=== PATIENT | female | born 1940 ===

== ENCOUNTER → 2016-11-26 | Outpatient (CLI) | payer OTHER ==
[2016-11-26 10:17] LABS: BASO % 1.1 %; BASO ABS # 0.08 K/uL (0-0.2); COMPLETE YES; EOS % 4.7 %; HEMATOCRIT 37.6 % (37-47); IG% 0.1 %; LYMPH % 34.5 %; LYMPH ABS # 2.41 K/uL (1.2-3.4); MEAN CELL VOLUME 97.9 fL (80-100); MEAN CORPUSCULAR HGB CONC 32.7 g/dl (32-36); MEAN PLATELET VOLUME 10.6 fL (7.4-10.4); MONO % 12.2 %; NEUT % 47.4 %; PLATELET COUNT 254 K/uL (130-400); RED BLOOD COUNT 3.84 M/uL (4.2-5.4); WHITE BLOOD COUNT 6.98 K/uL (4.8-10.8)
[2016-11-26 10:28] LABS: ALT/SGPT 22 U/L (12-78); AST/SGOT 12 U/L (15-37); BLOOD UREA NITROGEN 18 mg/dl (7-18); CARBON DIOXIDE 28 mmol/L (21-32); CHLORIDE 110 mmol/L (98-107); GLUCOSE 80 mg/dl (70-99); POTASSIUM 3.9 mmol/L (3.5-5.1); SODIUM 145 mmol/L (136-145)
[2016-11-26 10:35] LABS: CALCIUM 8.7 mg/dl (8.5-10.1)
[2016-11-26 10:38] LABS: ALB/GLOB RATIO 0.8 (0.9-2); ALKALINE PHOSPHATASE 61 U/L (45-117)
--- NOTE | 2016-12-04 12:55 | CODING QUERY MEDICAL NECESSITY ---
SUPPORTING DIAGNOSIS NEEDED Philippe ARELLANO, A supporting diagnosis is required for the test/procedure performed on this patient in order for us to be reimbursed by the patient's insurance. Please provide a supporting diagnosis for the following test/procedure listed below next to the test name along with your signature. *If there is no additional diagnosis for this patient that would support the following test/procedure please document that below next to the test/procedure. Test(s)/Procedure(s) that require a supporting diagnosis: * ([id number]) VITAMIN D ASSAY DIAGNOSIS: DATE OF SERVICE: 11/26/16 Provider Signature: Date: Thank you Russell [address] [facility] Information Management Once completed, please kindly fax back to [phone] For questions please call [phone]
== END ==
LOC: C.LABUPHEI 09:28
PROVIDERS: ATTEND Nurse Practitioner Family
DX: I15.9 Secondary hypertension, unspecified (principal); M62.81 Muscle weakness (generalized); E55.9 Vitamin D deficiency, unspecified

== ENCOUNTER → 2017-02-26 | Outpatient (CLI) | payer OTHER ==
[2017-02-26 10:05] LABS: BASO % 0.6 %; BASO ABS # 0.04 K/uL (0-0.2); COMPLETE YES; EOS % 4.1 %; HEMATOCRIT 36.4 % (37-47); IG% 0.1 %; LYMPH % 38.7 %; LYMPH ABS # 2.73 K/uL (1.2-3.4); MEAN CELL VOLUME 98.1 fL (80-100); MEAN CORPUSCULAR HEMOGLOBIN 31.8 pg (25-34); MEAN CORPUSCULAR HGB CONC 32.4 g/dl (32-36); MEAN PLATELET VOLUME 10.7 fL (7.4-10.4); MONO % 11.1 %; NEUT % 45.4 %; PLATELET COUNT 241 K/uL (130-400); RED BLOOD COUNT 3.71 M/uL (4.2-5.4); WHITE BLOOD COUNT 7.05 K/uL (4.8-10.8)
[2017-02-26 10:24] LABS: ALB/GLOB RATIO 0.9 (0.9-2); ALKALINE PHOSPHATASE 56 U/L (45-117); ALT/SGPT 26 U/L (12-78); AST/SGOT 12 U/L (15-37); BLOOD UREA NITROGEN 19 mg/dl (7-18); BUN/CREATININE RATIO 17.4 (10-20); CALCIUM 9.2 mg/dl (8.5-10.1); CARBON DIOXIDE 28 mmol/L (21-32); CHLORIDE 109 mmol/L (98-107); GLUCOSE 75 mg/dl (70-99); POTASSIUM 3.7 mmol/L (3.5-5.1); SODIUM 143 mmol/L (136-145)
[2017-02-26 10:58] LABS: ESTIMATED AVERAGE GLUCOSE 126 mg/dl; HA1C FLAG Normal (Normal)
== END ==
LOC: C.LABUPHEI 09:31
PROVIDERS: ATTEND Nurse Practitioner Family
DX: E55.9 Vitamin D deficiency, unspecified (principal); F44.5 Conversion disorder with seizures or convulsions; E11.9 Type 2 diabetes mellitus without complications; M62.81 Muscle weakness (generalized); I15.9 Secondary hypertension, unspecified

== ENCOUNTER → 2017-03-06 | Outpatient (CLI) | payer OTHER | LOC: C.LABUPHEI 10:32 | PROVIDERS: ATTEND Nurse Practitioner Family | DX: E55.9 Vitamin D deficiency, unspecified (principal) ==

== ENCOUNTER → 2017-04-19 | Outpatient (CLI) | payer OTHER | LOC: C.LABUPHEI 08:59 | PROVIDERS: ATTEND Nurse Practitioner Family | DX: F44.5 Conversion disorder with seizures or convulsions (principal) ==

== ENCOUNTER → 2017-07-15 | Outpatient (CLI) | payer OTHER ==
[2017-07-15 08:29] LABS: BASO % 0.8 %; BASO ABS # 0.06 K/uL (0-0.2); EOS % 2.1 %; EOS ABS # 0.16 K/uL (0-0.5); HEMATOCRIT 34.7 % (37-47); HEMOGLOBIN 11.5 g/dL (12.0-16.0); IG# 0.01 K/uL (0.00-0.02); LYMPH ABS # 2.09 K/uL (1.2-3.4); MEAN CORPUSCULAR HEMOGLOBIN 32.5 pg (25-34); MEAN CORPUSCULAR HGB CONC 33.1 g/dl (32-36); MEAN PLATELET VOLUME 11.6 fL (7.4-10.4); MONO % 13.2 %; MONO ABS # 1.02 K/uL (0.11-0.59); NEUT % 56.8 %; PLATELET COUNT 236 K/uL (130-400); RED CELL DISTRIBUTION WIDTH CV 13.8 % (11.5-14.5); RED CELL DISTRIBUTION WIDTH SD 49.5 fL (36.4-46.3); WHITE BLOOD COUNT 7.74 K/uL (4.8-10.8)
[2017-07-15 08:38] LABS: ALBUMIN 3.4 gm/dl (3.4-5.0); ALT/SGPT 17 U/L (12-78); BLOOD UREA NITROGEN 17 mg/dl (7-18); CARBON DIOXIDE 28 mmol/L (21-32); CREATININE 0.79 mg/dl (0.60-1.20); GLUCOSE 92 mg/dl (70-99); POTASSIUM 3.9 mmol/L (3.5-5.1); SODIUM 139 mmol/L (136-145)
[2017-07-15 08:49] LABS: ALKALINE PHOSPHATASE 44 U/L (45-117); AST/SGOT 12 U/L (15-37); TOTAL PROTEIN 7.6 gm/dl (6.4-8.2)
== END ==
LOC: C.LABUPHEI 07:42
PROVIDERS: ATTEND Nurse Practitioner Family
DX: E11.9 Type 2 diabetes mellitus without complications (principal); I15.9 Secondary hypertension, unspecified; F44.5 Conversion disorder with seizures or convulsions; R41.0 Disorientation, unspecified

== ENCOUNTER → 2017-07-17 | Outpatient (CLI) | payer OTHER | LOC: C.LABUPHEI 12:05 | PROVIDERS: ATTEND Nurse Practitioner Family | DX: R41.82 Altered mental status, unspecified (principal) ==

== ENCOUNTER → 2017-09-03 | Outpatient (CLI) | payer OTHER | LOC: C.LABUPHEI 08:38 | PROVIDERS: ATTEND Nurse Practitioner Family | DX: F02.81 Dementia in other diseases classified elsewhere, unspecified severity, with behavioral disturbance (principal) ==

== ENCOUNTER → 2017-09-03 | Outpatient (CLI) | payer OTHER | LOC: C.LABUPHEI 08:40 | PROVIDERS: ATTEND Nurse Practitioner Family | DX: R41.82 Altered mental status, unspecified (principal) ==

== ENCOUNTER → 2017-09-27 | Outpatient (CLI) | payer OTHER | LOC: C.LABUPHEI 08:49 | PROVIDERS: ATTEND Nurse Practitioner Family | DX: R56.9 Unspecified convulsions (principal) ==